=== PATIENT | female | born 1965 | race Caucasian/White ===

== ENCOUNTER 2020-12-19 08:25 | Inpatient (IN) | payer MEDICARE, MEDICAID ==
[~2020-12-19] VITALS: Ht 165.1 cm; Wt 83.7 kg
[2020-12-19] MEDS ORDERED: LAMO100T5 PO (09:08)
[2020-12-19] MEDS ORDERED: QUET200T4 PO (09:08)
[2020-12-19] MEDS ORDERED: HYDR200T72 PO (09:08)
[2020-12-19] MEDS ORDERED: OXYC-302 PO (09:08)
[2020-12-19] MEDS ORDERED: PEROXITINE PO (09:08)
[2020-12-19 09:30] VITALS: BP 165/90
[2020-12-19] MEDS ORDERED: CHLORHEXIDINE 15 ML UDC ONE (09:47)
[2020-12-19] MEDS ORDERED: CHLORHEXIDINE 15 ML UDC PO ONE (10:00)
[2020-12-19] MEDS ORDERED: LACTATED RINGERS 1,000 ML IV SCH (10:00)
[2020-12-19] MEDS ORDERED: TRIAMCINOLONE ACETONIDE 40 MG/ML, 1ML ONE (10:10)
[2020-12-19] MEDS ORDERED: LIDOCAINE 4%, 4 ML SYR/CANN TP ONE (10:10)
[2020-12-19] MEDS ORDERED: OXYMETAZOLINE NASAL SPRAY 0.05%,30ML ONE (10:10)
[2020-12-19] MEDS ORDERED: PROPOFOL 10 MG/ML, 20ML ONE (10:28)
[2020-12-19] MEDS ORDERED: ROCURONIUM 10 MG/ML,10ML ONE (10:28)
[2020-12-19] MEDS ORDERED: ONDANSETRON 2MG/ML, 2ML ONE (10:28)
[2020-12-19] MEDS ORDERED: MIDAZOLAM 1 MG/ML, 2ML ONE (10:55)
[2020-12-19] MEDS ORDERED: FENTANYL PF 250 MCG/5ML ONE (10:55)
[2020-12-19] MEDS ORDERED: hydrALAzine 20 MG/ML, 1ML ONE (11:53)
[2020-12-19] MEDS ORDERED: METHOCARBAMOL 1,000 MG in DEXTROSE 5% 100 ML IV PRN (12:00)
[2020-12-19] MEDS ORDERED: hydrALAzine 20 MG/ML, 1ML IV PRN (12:00)
[2020-12-19] MEDS ORDERED: HYDROmorphone 1 MG/ML, 1ML INJ IVPush PRN (12:00)
[2020-12-19] MEDS ORDERED: LABETALOL 5MG/ML, 20ML IV PRN (12:00)
[2020-12-19] MEDS ORDERED: MEPERIDINE/PF 25MG/0.5ML IVPush PRN (12:00)
[2020-12-19] MEDS ORDERED: ACETAMINOPHEN 325 MG TABLET PO PRN (12:00)
[2020-12-19] MEDS ORDERED: LORazepam 2 MG/ML, 1ML IVPush PRN (12:00)
[2020-12-19] MEDS ORDERED: ONDANSETRON 2MG/ML, 2ML IVPush PRN (12:00)
[2020-12-19] MEDS ORDERED: OXYcodone 5 MG/5 ML ORAL.SOL UDC PO PRN (12:00)
[2020-12-19] MEDS ORDERED: PROMETHAZINE 25 MG/ML, 1ML IVPush PRN (12:00)
[2020-12-19] MEDS ORDERED: EPHEDRINE 50 MG/ML, 1ML IVPush PRN (12:00)
[2020-12-19] MEDS ORDERED: OXYcodone 5 MG/5 ML ORAL.SOL UDC ONE (12:30)
[2020-12-19] MEDS ORDERED: FENTANYL PF 100 MCG/2ML ONE ×2 (12:30→16:39)
[2020-12-19] MEDS: FENTANYL PF 100 MCG/2ML IV PRN ×2 (12:33→12:51)
[2020-12-19] MEDS ORDERED: OXYcodone/APAP 5/325MG TABLET PO PRN ×2 (14:00→15:30)
[2020-12-19] MEDS ORDERED: ONDANSETRON 2MG/ML, 2ML IV PRN (14:00)
[2020-12-19] MEDS ORDERED: PLEASE ENTER ALLERGIES MC SCH (14:00)
[2020-12-19] MEDS ORDERED: ALBUTEROL SULFATE 2.5 MG/3 ML NPPB PRN (15:00)
[2020-12-19] MEDS ORDERED: HEPARIN 5,000 UNITS/ML, 1ML SQ SCH (15:30)
[2020-12-19] MEDS ORDERED: NITROGLYCERIN 0.4 MG BOTTLE (25 TABS) SL PRN (16:30)
[2020-12-19] MEDS ORDERED: BIVALIRUDIN 250 MG ONE (16:39)
[2020-12-19] MEDS ORDERED: LIDOCAINE 1%, 20ML ONE (16:39)
[2020-12-19] MEDS ORDERED: MIDAZOLAM 1 MG/ML, 5ML ONE (16:39)
[2020-12-19 16:52] LABS: BASOPHILS % (AUTO) 0 % (0-1); EOSINOPHILS % (AUTO) 0 % (1-7); LYMPHOCYTES % (AUTO) 13 % (22-44); MEAN CORPUSCULAR HEMOGLOBIN 30.5 pg (27.0-34.8); MEAN CORPUSCULAR HGB CONC 33.7 g/dL (32.4-35.8); MONOCYTES % (AUTO) 4 % (2-9); NEUTROPHILS % (AUTO) 82 % (42-75); PLATELET COUNT 336 x10^3/uL (130-400); RED BLOOD COUNT 4.56 x10^6/uL (3.82-5.3); RED CELL DISTRIBUTION WIDTH 14.4 % (9.6-15.2)
[2020-12-19] MEDS ORDERED: METOPROLOL 1 MG/ML, 5ML ONE (17:02)
[2020-12-19] MEDS ORDERED: LABETALOL 5MG/ML, 20ML IVPush PRN (17:30)
[2020-12-19 17:31] VITALS: BP 152/101
[2020-12-19 19:00] VITALS: BP 170/104
[2020-12-19] MEDS: LAMOTRIGINE 100 MG TABLET PO SCH (20:12)
[2020-12-19 21:00] VITALS: BP 164/100
[2020-12-19] MEDS ORDERED: ATORVASTATIN 40 MG TABLET PO SCH (21:00)
[2020-12-19] MEDS ORDERED: QUETIAPINE 200 MG TABLET PO SCH (21:00)
[2020-12-19] MEDS: QUETIAPINE 200 MG TABLET PO SCH (21:01)
[2020-12-19 21:33] VITALS: BP 146/94
[2020-12-20 01:16] VITALS: BP 116/79
[2020-12-20] MEDS ORDERED: ASPIRIN 325 MG TABLET PO SCH ×2 (06:00)
[2020-12-20 06:58] VITALS: BP 143/86
[2020-12-20] MEDS: QUETIAPINE 200 MG TABLET PO SCH (10:22)
[2020-12-20] MEDS: LAMOTRIGINE 100 MG TABLET PO SCH (10:22)
[2020-12-20] MEDS ORDERED: ASPI81TA45 PO (11:31)
[2020-12-20] MEDS ORDERED: ATOR40TA78 PO (11:31)
[2020-12-20] MEDS ORDERED: CARV3.1212 PO (11:35)
[2020-12-20 12:23] VITALS: BP 96/64
[2020-12-20] MEDS ORDERED: CARVEDILOL 3.125 MG TABLET PO SCH (18:00)
[2020-12-21] MEDS ORDERED: ASPIRIN 81 MG TABLET EC PO SCH (06:00)
== END 2020-12-20 14:10 | disposition home or self-care (01) | DRG 154 ==
LOC: OUT 08:25 → 4NE 13:16 → OUT 14:25 → 5SO 17:20 → DCLOUNGE 12-20 14:00
PROVIDERS: ADMIT Otolaryngology; ATTEND Otolaryngology
PROC: 4A023N7 Measurement of Cardiac Sampling and Pressure, Left Heart, Percutaneous Approach (ICD-10-PCS; 2020-12-19)
PROC: B2111ZZ Fluoroscopy of Multiple Coronary Arteries using Low Osmolar Contrast (ICD-10-PCS; 2020-12-19)
PROC: B2151ZZ Fluoroscopy of Left Heart using Low Osmolar Contrast (ICD-10-PCS; 2020-12-19)
PROC: 0CBS8ZX Excision of Larynx, Via Natural or Artificial Opening Endoscopic, Diagnostic (ICD-10-PCS; principal; 2020-12-19 10:30)
DX: J38.6 Stenosis of larynx (principal); I21.4 Non-ST elevation (NSTEMI) myocardial infarction; Z93.0 Tracheostomy status; E66.9 Obesity, unspecified; F31.9 Bipolar disorder, unspecified; I10 Essential (primary) hypertension; Z87.891 Personal history of nicotine dependence; Z79.899 Other long term (current) drug therapy; Z68.30 Body mass index [BMI] 30.0-30.9, adult
CPT/HCPCS: 36415; 71045; 83880; 84484; 85025; 87635; 88305; 93005; 93306; 93356; 93458; 99156; C1726; C1760; C1894; G0378; J0583; J2250; J2405; J2704; J3010; J3301; J0360; Q9967